=== PATIENT | female | born 1935 | race Caucasian/White ===

== ENCOUNTER 2018-05-11 10:51 | Outpatient (CLI) | payer MEDICARE ==
--- NOTE | 2018-05-11 11:55 | CT ---
CT CHEST NONCONTRAST: History: Lung nodules. Aortic aneurysm. Comparison: 10-06-17 FINDINGS: Multiple previous exams back to 09-03-10. FINDINGS: Prominent arterial calcification. Dilatation of the ascending aorta is 4.4 x 4.4 cm diameters at the level of the pulmonary artery bifurcation where it was measured on prior exams. This is unchanged fro m the most recent study. Very slightly enlarged compared to the 2011 exam. Lungs remain hyperinflated. Scattered subcentimeter noncalcified nodules throughout each lung are sim ilar in appearance. No pneumothorax. Lack of contrast limits evaluation of the soft tissues. No bulky adenopathy. IMPRESSION: 1. Stable CT appearance of the dilated ascending aorta. Prominent atherosclerosis. 2. Numerous subcentimeter noncalcified lung nodules appear stable. POS: [facility]
== END 2018-05-11 10:52 | disposition home or self-care (01) ==
LOC: CT 10:51
PROVIDERS: ATTEND Thoracic Surgery (Cardiothoracic Vascular Surgery)
DX: I71.2 Thoracic aortic aneurysm, without rupture (principal); R91.8 Other nonspecific abnormal finding of lung field
CPT/HCPCS: 71250